=== PATIENT | male | born 1965 | race Caucasian/White ===

== ENCOUNTER 2017-04-08 07:12 | Outpatient (CLI) | payer OTHER ==
[2017-04-08 08:31] LABS: eGFR (African) > 60; eGFR (Non-African) > 60
== END 2017-04-08 07:14 ==
LOC: LAB 07:12
PROVIDERS: ATTEND Physician Assistant
DX: Z00.00 Encounter for general adult medical examination without abnormal findings (principal); Z13.6 Encounter for screening for cardiovascular disorders
CPT/HCPCS: 36415; 80053; 80061